=== PATIENT | male | born 2000 | race Caucasian/White ===

== ENCOUNTER 2021-09-27 16:07 | Emergency (ER) | payer OTHER ==
[~2021-09-27] VITALS: Ht 172.7 cm; Wt 60.8 kg
[2021-09-27 16:23] VITALS: BP 144/88
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
--- NOTE | 2021-09-27 16:38 | NUR ---
PT TAKEN TO RAD VIA WC
[2021-09-27] MEDS ORDERED: BACITRACIN OINT 500 UNITS/GM PKT TP ONE (17:40)
[2021-09-27] MEDS ORDERED: BACI1PAC6 TP (17:45)
[2021-09-27] MEDS ORDERED: CEPH-588 PO (17:45)
[2021-09-27] MEDS ORDERED: NAPR-54 PO (17:45)
[2021-09-27] MEDS ORDERED: IBUPROFEN 600 MG TAB PO ONE (17:55)
[2021-09-27 18:23] VITALS: BP 110/73
--- NOTE | 2021-09-27 18:26 | NUR ---
PT'S WOUNDS CLEANED AND IRRIGATED WITH NORMAL SALINE AND WARM WATER. APPLIED XEROFORM GAUZE TO PT'S RIGHT ELBOW WOUNDS AND APPLIED A NON-ADHERENT THEN WRAPPED WITH BULKY DRESSING AND KOFLEX TAPE. RN AND PA NOTIFIED.
--- NOTE | 2021-09-27 18:52 | NUR ---
Patient discharged with v/s stable. Written and verbal after care instructions given and explained. Patient alert, oriented and verbalized understanding of instructions. Ambulatory with steady gait. All questions addressed prior to discharge. ID band removed. Patient advised to follow up with PMD. Rx of NAPROXEN, KELFEX, BACITRACIN OINTMENT given. Patient educated on indication of medication including possible reaction and side effects. Opportunity to ask questions provided and answered.
== END 2021-09-27 18:24 | disposition home or self-care (01) ==
LOC: MED 16:07
DX: S40.811A Abrasion of right upper arm, initial encounter (principal); S80.211A Abrasion, right knee, initial encounter; S70.211A Abrasion, right hip, initial encounter; Z79.899 Other long term (current) drug therapy; V00.131A Fall from skateboard, initial encounter; Y93.89 Activity, other specified; Y92.828 Other wilderness area as the place of occurrence of the external cause; Y99.8 Other external cause status
CPT/HCPCS: 72170; 73030; 73080; 73090; 73562; 99284